=== PATIENT | male | born 1940 | race African-American/Black ===

== ENCOUNTER → 2023-03-27 | Outpatient (CLI) | payer MEDICARE, MEDICAID ==
[~2023-03-27] MED LIST: GADOTERATE MEGLUMINE 5 MMOL/10 ML VIAL IV ONE
== END | disposition home or self-care (01) ==
LOC: MRI 09:25
DX: I67.82 Cerebral ischemia (principal); G31.89 Other specified degenerative diseases of nervous system; H50.22 Vertical strabismus, left eye; H53.2 Diplopia
CPT/HCPCS: 70553; A9577